=== PATIENT | female | born 1985 | race Caucasian/White ===

== ENCOUNTER → 2017-04-07 | Outpatient (CLI) | payer BC ==
[~2017-04-07] MED LIST: LEXAPRO20 MG PO; SYNTHROID0.15 MG PO
== END | disposition home or self-care (01) ==
LOC: MAMMO 09:17
DX: N63 Unspecified lump in breast (principal)

== ENCOUNTER 2020-06-30 22:13 | Emergency (ER) | payer BC ==
[~2020-06-30] VITALS: Ht 162.5 cm; Wt 127.5 kg
[2020-06-30 22:44] LABS: BASO % 0.4 % (0.0-1.0); EOS # 0.1 10*3/uL (0.0-0.4); EOS % 1.5 % (1.0-4.0); HEMATOCRIT 41.2 % (37.0-47.0); LYMPH # 3.5 10*3/uL (1.3-4.4); LYMPH % 36.8 % (27.0-41.0); MEAN CELL VOLUME 98.1 fl (81.0-99.0); MEAN CORPUSCULAR HGB 31.2 pg (27.0-31.0); MEAN CORPUSCULAR HGB CONC 31.8 g/dl (33.0-37.0); MONO # 0.7 10*3/uL (0.1-1.0); MONO % 7.2 % (3.0-9.0); NEUT % 53.8 % (47.0-73.0); PLATELET COUNT AUTOMATED 223 10*3/uL (130-400); RED CELL DISTRI WIDTH 12.1 % (0-14.5); WHITE BLOOD COUNT 9.4 10*3/uL (4.8-10.8)
[2020-06-30 22:52] LABS: ACT PARTIAL THROMBO TIME 25.9 SECONDS (20.0-32.1)
[2020-06-30 22:58] LABS: ALBUMIN 3.5 gm/dl (3.1-4.5); ALKALINE PHOSPHATASE 77 U/L (45-117); BUN 13 mg/dl (7-24); CHLORIDE 109 mmol/L (98-107); CREATININE 0.62 mg/dL (0.55-1.02); LIPASE 86 U/L (73-393); POTASSIUM 3.7 mmol/L (3.5-5.1); SGOT/AST 29 IU/L (3-35); SGPT/ALT 63 U/L (12-78); SODIUM 138 mmol/L (136-145); TOTAL PROTEIN 7.3 gm/dL (6.4-8.2); TROPONIN I < 0.015 ng/ml (<0.045)
[2020-06-30 23:41] LABS: BILIRUBIN NEGATIVE (NEGATIVE); BLOOD NEGATIVE (NEGATIVE); CLARITY SL CLOUDY (CLEAR); COLOR YELLOW (YELLOW); EPITHELIAL CELLS 21-30; GLUCOSE 2+ (NEGATIVE); KETONE TRACE (NEGATIVE); LEUKO ESTERASE 2+ (NEGATIVE); NITRITE NEGATIVE (NEGATIVE); UROBILINOGEN 0.2 E.U./dl (0.2-1.0)
[2020-06-30 23:44] LABS: BACTERIA 2+; WBC 21-30 wbc/hpf (0-5)
== END 2020-07-01 00:11 | disposition home or self-care (01) ==
LOC: ED 22:13
PROVIDERS: Physician Assistant
DX: R07.89 Other chest pain (principal); K21.9 Gastro-esophageal reflux disease without esophagitis; Z79.899 Other long term (current) drug therapy

== ENCOUNTER → 2021-03-06 | Outpatient (CLI) | payer BC | END | disposition home or self-care (01) | LOC: US 12:57 | PROVIDERS: ATTEND Nurse Practitioner Women's Health | DX: O30.041 Twin pregnancy, dichorionic/diamniotic, first trimester (principal); Z3A.08 8 weeks gestation of pregnancy ==

== ENCOUNTER → 2021-03-21 | Outpatient (CLI) | payer BC | END | disposition home or self-care (01) | LOC: D 15:00 | PROVIDERS: ATTEND Obstetrics & Gynecology | DX: O24.119 Pre-existing type 2 diabetes mellitus, in pregnancy, unspecified trimester (principal) ==

== ENCOUNTER → 2021-04-05 | Outpatient (CLI) | payer BC | END | disposition home or self-care (01) | LOC: US 12:26 | PROVIDERS: ATTEND Obstetrics & Gynecology | DX: O36.8311 Maternal care for abnormalities of the fetal heart rate or rhythm, first trimester, fetus 1 (principal); O30.041 Twin pregnancy, dichorionic/diamniotic, first trimester; Z3A.12 12 weeks gestation of pregnancy; Z3A.08 8 weeks gestation of pregnancy ==

== ENCOUNTER 2024-08-02 08:56 | Emergency (ER) | payer BC ==
[~2024-08-02] VITALS: Ht 162.5 cm; Wt 113.9 kg
[2024-08-02] MEDS ORDERED: Lactated Ringer's Solution 1,000 ML IV SCH (10:15)
[2024-08-02 10:47] LABS: BASO % 0.4 % (0.0-1.0); HEMATOCRIT 41.7 % (37.0-47.0); LYMPH # 1.6 10*3/uL (1.3-4.4); MEAN CELL VOLUME 96.3 fl (81.0-99.0); MEAN CORPUSCULAR HGB 31.2 pg (27.0-31.0); MEAN CORPUSCULAR HGB CONC 32.4 g/dl (33.0-37.0); MEAN PLATELET VOLUME 10.7 fl (9.6-12.3); MONO # 0.6 10*3/uL (0.1-1.0); NEUT % 80.2 % (47.0-73.0); PLATELET COUNT AUTOMATED 255 10*3/uL (130-400); RED BLOOD COUNT 4.33 10*6/uL (4.10-5.10); RED CELL DISTRI WIDTH 12.3 % (0-14.5); WHITE BLOOD COUNT 11.3 10*3/uL (4.8-10.8)
[2024-08-02 10:58] LABS: BILIRUBIN Negative (Negative); BLOOD 1+ (Negative); CLARITY Clear (Clear); COLOR Yellow (Yellow); GLUCOSE 3+ (Negative); KETONE 2+ (Negative); LEUKO ESTERASE 1+ (Negative); NITRITE Negative (Negative); SPECIFIC GRAVITY >= 1.030 (1.001-1.030); UROBILINOGEN 0.2 E.U./dl (0.0-1.0)
[2024-08-02 11:02] LABS: ALKALINE PHOSPHATASE 70 U/L (46-116); BUN 14 mg/dl (9-23); CHLORIDE 104 mmol/L (98-107); SGPT/ALT 26 U/L (5-49); TOTAL PROTEIN 7.7 gm/dL (6.0-8.0)
[2024-08-02 11:09] LABS: BACTERIA 2+
== END 2024-08-02 13:36 | disposition home or self-care (01) ==
LOC: ED 08:56
PROVIDERS: Emergency Medicine
DX: R42 Dizziness and giddiness (principal); E11.65 Type 2 diabetes mellitus with hyperglycemia; K21.9 Gastro-esophageal reflux disease without esophagitis; Z98.890 Other specified postprocedural states; Z79.899 Other long term (current) drug therapy